=== PATIENT | male | born 1955 | race Caucasian/White ===

== ENCOUNTER 2018-09-14 09:06 | Outpatient (CLI) | payer MEDICARE ==
--- NOTE | 2018-09-14 09:52 | ULT ---
COMPLETE BILATERAL RENAL ULTRASOUND: HISTORY: Renal calculi. FINDINGS: The right kidney measures 12.3 x 5.1 x 5.8 cm. The left kidney measures 11.3 x 4.8 x 5.4 cm. No evidence for renal hydronephrosis. No perinephric process. Unremarkable appearing urinary bladder. IMPRESSION: Unremarkable bilateral renal ultrasound. POS: [facility]
== END 2018-09-14 09:07 | disposition home or self-care (01) ==
LOC: NAV ULT 09:06
PROVIDERS: ATTEND Internal Medicine
DX: N20.0 Calculus of kidney (principal)
CPT/HCPCS: 76770